=== PATIENT | female | born 1975 | race African-American/Black ===

== ENCOUNTER 2019-03-16 16:48 | Emergency (ER) | payer SELFPAY ==
[~2019-03-16] VITALS: Ht 165.1 cm; Wt 80.0 kg
[2019-03-16] MEDS ORDERED: ONDANSETRON HCL 4MG/2ML INJ IV STA (17:23)
[2019-03-16] MEDS ORDERED: SODIUM CHLORIDE 0.9% 1,000 ML IV ONE ×2 (17:23→20:30)
[2019-03-16 17:39] LABS: BASOPHILS % 0.6 % (0.0-2.0); EOSINOPHILS % 0.6 % (0.0-5.0); HEMATOCRIT. 39.4 % (36.0-48.0); HEMOGLOBIN. 13.1 g/dL (12.0-16.0); LYMPHOCYTES % 20.4 % (20.0-50.0); MEAN CORPUSCULAR HEMOGLOBIN 30.9 pg (28.0-32.0); MEAN CORPUSCULAR VOLUME 92.8 fL (81.0-99.0); MEAN PLATELET VOLUME 8.9 fl (7.4-10.4); MONOCYTES % 8.4 % (2.0-8.0); PLATELET 341 x1000/uL (130-400); RED BLOOD CELL COUNT 4.24 mill/uL (4.2-5.4); RED CELL DISTRIBUTION WIDTH 13.6 % (11.6-14.6)
[2019-03-16 17:40] LABS: CLARITY URINE CLOUDY (CLEAR); COLOR URINE DARK YELLOW (YELLOW); KETONES URINE 3+ (NEGATIVE); LEUKOCYTE ESTERASE URINE NEGATIVE (NEGATIVE); NITRITE URINE NEGATIVE (NEGATIVE); OCCULT BLOOD URINE NEGATIVE (NEGATIVE); PH URINE 5.5 (4.5-8.0); PROTEIN URINE 1+ (NEGATIVE); SPECIFIC GRAVITY URINE 1.039 (1.005-1.030)
[2019-03-16 17:44] LABS: CHLORIDE 106 mEq/L (98-107)
[2019-03-16 17:49] LABS: ETHANOL BLOOD < 10 mg/dL
[2019-03-16 17:55] LABS: *AMPHETAMINES SCREEN URINE NEGATIVE (NEGATIVE); *BARBITURATES SCREEN URINE NEGATIVE (NEGATIVE); *BENZODIAZEPINES SCREEN URINE NEGATIVE (NEGATIVE)
[2019-03-16 17:56] LABS: CANNABINOID URINE SCREEN NEGATIVE (NEGATIVE); METHADONE URINE SCREEN NEGATIVE (NEGATIVE); OPIATES URINE SCREEN NEGATIVE (NEGATIVE)
[2019-03-16 17:59] LABS: *COCAINE SCREEN URINE PRESUMTIVE POSITIVE (NEGATIVE); PHENCYCLIDINE URINE SCREEN PRESUMTIVE POSITIVE (NEGATIVE)
[2019-03-16] MEDS ORDERED: HALOPERIDOL LACTATE 5MG/ML VIAL IM ONE (20:45)
[2019-03-16] MEDS ORDERED: DIPHENHYDRAMINE 50MG/ML VIAL IM ONE (20:45)
[2019-03-17 02:16] VITALS: BP 133/68
== END 2019-03-17 02:53 | disposition home or self-care (01) ==
LOC: ER 16:48
DX: F19.10 Other psychoactive substance abuse, uncomplicated (principal); F16.121 Hallucinogen abuse with intoxication with delirium
CPT/HCPCS: 36415; 80053; 80305; 80320; 81003; 82962; 84484; 85025; 93005; 96360; 96361; 96372; 99284; J1200; J1630; J7030; Z7610; J2405; G0480